=== PATIENT | female | born 1995 | race Caucasian/White ===

== ENCOUNTER 2019-10-10 13:47 | Outpatient (RCR) | payer BC, SELFPAY ==
[2019-10-10 14:06] VITALS: BP 114/78; PULSE 87; RESP 18; TEMP 37.2; O2SAT 100; BMI 24.0
[2019-10-17 13:42] VITALS: BP 106/82; PULSE 95; RESP 18; TEMP 35.8; O2SAT 100; BMI 24.0
== END 2019-11-08 23:59 | disposition home or self-care (01) ==
LOC: GILAB 13:47
PROVIDERS: Family Provider Internal Medicine; Visit Provider Internal Medicine
DX: D50.9 Iron deficiency anemia, unspecified (principal)
CPT/HCPCS: 96365; J1439

== ENCOUNTER 2019-10-17 13:27 | Outpatient (CLI) | payer BC, SELFPAY | END 2019-10-17 13:28 | disposition home or self-care (01) | PROVIDERS: Family Provider Internal Medicine; PCP Nurse Practitioner Family; Visit Provider Internal Medicine | DX: Z53.9 Procedure and treatment not carried out, unspecified reason (principal) ==

== ENCOUNTER 2019-11-29 11:12 | Outpatient (RCR) | payer BC, SELFPAY ==
[2019-11-29 11:44] VITALS: BP 109/72; PULSE 84; RESP 16; TEMP 37; O2SAT 100; BMI 21.9
== END 2019-12-07 23:59 | disposition home or self-care (01) ==
LOC: GILAB 11:12
PROVIDERS: Family Provider Internal Medicine; PCP Nurse Practitioner Family; Visit Provider Internal Medicine
DX: K51.011 Ulcerative (chronic) pancolitis with rectal bleeding (principal)
CPT/HCPCS: 96365; 96366; J1745; J7050

== ENCOUNTER 2019-12-13 13:43 | Outpatient (RCR) | payer BC, SELFPAY ==
[2019-12-13 14:11] VITALS: BP 108/82; PULSE 86; RESP 18; TEMP 37; O2SAT 100
== END 2020-01-07 23:59 | disposition home or self-care (01) ==
LOC: OPS 13:43
PROVIDERS: Family Provider Internal Medicine; PCP Nurse Practitioner Family; Visit Provider Internal Medicine
DX: K51.011 Ulcerative (chronic) pancolitis with rectal bleeding (principal)
CPT/HCPCS: 96365; 96366; J1745; J7050

== ENCOUNTER 2020-02-07 13:42 | Outpatient (CLI) | payer BC, SELFPAY ==
[2020-02-07 14:00] VITALS: BP 108/61; PULSE 93; RESP 16; TEMP 37.1; O2SAT 100
[2020-02-07 17:08] VITALS: BP 108/70; PULSE 66; RESP 16; TEMP 37; O2SAT 99
== END 2020-02-07 13:43 | disposition home or self-care (01) ==
LOC: RHEOACUTE 13:42
PROVIDERS: Family Provider Internal Medicine; PCP Nurse Practitioner Family; Visit Provider Internal Medicine Rheumatology
DX: K51.011 Ulcerative (chronic) pancolitis with rectal bleeding (principal)
CPT/HCPCS: 96365; 96366; J1745; J7050

== ENCOUNTER 2020-04-03 13:45 | Outpatient (CLI) | payer BC, SELFPAY ==
[2020-04-03 14:19] VITALS: BMI 22.4
[2020-04-03 14:24] VITALS: BP 120/73; PULSE 76; RESP 16; TEMP 37.1; O2SAT 96
== END 2020-04-03 13:46 | disposition home or self-care (01) ==
LOC: OPS 13:52
PROVIDERS: Family Provider Internal Medicine; PCP Nurse Practitioner Family; Visit Provider Internal Medicine
DX: K51.011 Ulcerative (chronic) pancolitis with rectal bleeding (principal)
CPT/HCPCS: 96365; 96366; J1745; J7050

== ENCOUNTER 2020-05-29 12:02 | Outpatient (RCR) | payer BC, SELFPAY ==
[2020-05-29 12:13] VITALS: BP 118/72; PULSE 93; RESP 18; TEMP 37.3; O2SAT 98
[2020-05-29 12:27] VITALS: BMI 22.4
== END 2020-06-08 23:59 | disposition home or self-care (01) ==
LOC: OPS 12:02
PROVIDERS: PCP Nurse Practitioner Family; Visit Provider Internal Medicine
DX: K51.011 Ulcerative (chronic) pancolitis with rectal bleeding (principal)
CPT/HCPCS: 96365; 96366; J1745; J7050

== ENCOUNTER → 2020-09-08 10:41 | Day surgery (SDC) | payer BC, SELFPAY ==
[2020-09-08 11:39] VITALS: BP 108/90; PULSE 92; RESP 16; TEMP 36.4; O2SAT 100
[2020-09-08 12:46] VITALS: BMI 23.8
== END ==
PROVIDERS: PCP Nurse Practitioner Family; Visit Provider Internal Medicine
DX: K51.011 Ulcerative (chronic) pancolitis with rectal bleeding (principal)
CPT/HCPCS: 96365; 96366; J1745; J7050

== ENCOUNTER → 2020-12-11 10:01 | Day surgery (SDC) | payer BC, OTHER, SELFPAY ==
[2020-12-11 10:21] VITALS: BP 113/82; PULSE 78; RESP 18; TEMP 36.3; O2SAT 97
== END ==
PROVIDERS: PCP Nurse Practitioner Family; Visit Provider Internal Medicine
DX: K51.011 Ulcerative (chronic) pancolitis with rectal bleeding (principal)
CPT/HCPCS: 96365; 96366; J1745; J7050

== ENCOUNTER → 2021-02-01 08:51 | Day surgery (SDC) | payer BC, OTHER, SELFPAY ==
[2021-02-01 09:10] VITALS: BP 116/80; PULSE 81; RESP 18; TEMP 36.7; O2SAT 98
== END ==
LOC: OPS 08:52 → GILAB 08:55
PROVIDERS: PCP Nurse Practitioner Family; Visit Provider Internal Medicine
DX: K51.011 Ulcerative (chronic) pancolitis with rectal bleeding (principal)
CPT/HCPCS: 96365; 96366; J1745; J7050

== ENCOUNTER → 2021-03-29 09:13 | Day surgery (SDC) | payer BC, SELFPAY ==
[2021-03-29 09:25] VITALS: BP 120/83; PULSE 83; RESP 18; TEMP 36.9; O2SAT 95
== END ==
PROVIDERS: PCP Nurse Practitioner Family; Visit Provider Internal Medicine
DX: K51.011 Ulcerative (chronic) pancolitis with rectal bleeding (principal)
CPT/HCPCS: 96365; 96366; J1745; J7050

== ENCOUNTER → 2021-05-24 08:57 | Day surgery (SDC) | payer BC, SELFPAY ==
[2021-05-24 09:15] VITALS: BP 103/77; PULSE 82; RESP 18; TEMP 36.5; O2SAT 100
== END ==
PROVIDERS: PCP Nurse Practitioner Family; Visit Provider Internal Medicine
DX: K51.011 Ulcerative (chronic) pancolitis with rectal bleeding (principal)
CPT/HCPCS: 83550; 96365; 96366; J1745; J7050

== ENCOUNTER → 2021-07-20 09:11 | Day surgery (SDC) | payer BC, SELFPAY ==
[2021-07-20 09:30] VITALS: BP 126/79; PULSE 78; RESP 18; TEMP 36.7; O2SAT 98
== END ==
PROVIDERS: PCP Nurse Practitioner Family; Visit Provider Internal Medicine
DX: K51.011 Ulcerative (chronic) pancolitis with rectal bleeding (principal)
CPT/HCPCS: 96365; 96366; J1745; J7050

== ENCOUNTER → 2021-09-14 10:17 | Day surgery (SDC) | payer BC, SELFPAY ==
[2021-09-14 10:26] VITALS: BP 105/73; PULSE 76; RESP 18; TEMP 36.5; O2SAT 99
[2021-09-14 10:30] VITALS: BMI 26.5
== END ==
LOC: OPS 10:20 → GILAB 10:22
PROVIDERS: PCP Nurse Practitioner Family; Visit Provider Internal Medicine
DX: K51.011 Ulcerative (chronic) pancolitis with rectal bleeding (principal)
CPT/HCPCS: 96365; 96366; J1745; J7050

== ENCOUNTER → 2021-12-09 09:39 | Day surgery (SDC) | payer BC, OTHER, SELFPAY ==
[2021-12-09 10:03] VITALS: BP 128/84; PULSE 77; RESP 18; TEMP 36.2; O2SAT 99
== END ==
PROVIDERS: PCP Nurse Practitioner Family; Visit Provider Internal Medicine
DX: K51.011 Ulcerative (chronic) pancolitis with rectal bleeding (principal)
CPT/HCPCS: 96365; J1745; J7050

== ENCOUNTER → 2022-02-03 10:31 | Day surgery (SDC) | payer BC, SELFPAY ==
[2022-02-03 10:45] VITALS: BP 138/88; PULSE 88; RESP 18; TEMP 36.4; O2SAT 99
== END ==
PROVIDERS: PCP Nurse Practitioner Family; Visit Provider Internal Medicine
DX: K51.011 Ulcerative (chronic) pancolitis with rectal bleeding (principal)
CPT/HCPCS: 96365; 96366; J7050

== ENCOUNTER → 2022-04-01 10:15 | Day surgery (SDC) | payer BC, SELFPAY ==
[2022-04-01 10:32] VITALS: BP 128/89; PULSE 85; RESP 18; TEMP 36.6; O2SAT 98
== END ==
PROVIDERS: PCP Nurse Practitioner Family; Visit Provider Internal Medicine
DX: K51.011 Ulcerative (chronic) pancolitis with rectal bleeding (principal)
CPT/HCPCS: 96365; J1745; J7050

== ENCOUNTER → 2022-05-27 09:56 | Day surgery (SDC) | payer BC, SELFPAY ==
[2022-05-27 10:06] VITALS: BP 138/96; PULSE 93; RESP 18; TEMP 36.4; O2SAT 99
[2022-05-27] MEDS: REMICADE 1 EACH XX (10:17)
== END ==
LOC: GILAB 09:57
PROVIDERS: PCP Nurse Practitioner Family; Visit Provider Internal Medicine
DX: K51.011 Ulcerative (chronic) pancolitis with rectal bleeding (principal)
CPT/HCPCS: 96365; 96366; A4222

== ENCOUNTER → 2022-07-22 10:12 | Day surgery (SDC) | payer BC, SELFPAY ==
[2022-07-22 10:28] VITALS: BP 127/82; PULSE 89; RESP 18; TEMP 36.4; O2SAT 99
== END ==
PROVIDERS: PCP Nurse Practitioner Family; Visit Provider Internal Medicine
DX: K51.011 Ulcerative (chronic) pancolitis with rectal bleeding (principal)
CPT/HCPCS: 96365; 96366

== ENCOUNTER → 2022-09-16 10:16 | Day surgery (SDC) | payer BC, SELFPAY ==
[2022-09-16 10:28] VITALS: BP 118/73; PULSE 95; RESP 18; TEMP 36.8; O2SAT 98
== END ==
LOC: GILAB 10:17
PROVIDERS: PCP Nurse Practitioner Family; Visit Provider Internal Medicine
DX: K51.011 Ulcerative (chronic) pancolitis with rectal bleeding (principal)
CPT/HCPCS: 96365; 96366; J7050